=== PATIENT | female | born 1995 | race Caucasian/White ===

== ENCOUNTER 2019-12-03 19:40 | Outpatient (CLI) | payer OTHER ==
[~2019-12-03 19:40] MED LIST: IBUP-1222 PO; OXYC-302 PO
[2019-12-03 19:55] VITALS: BP 119/58
[2019-12-03 20:38] LABS: MICROSCOPIC INDICATED
[2019-12-03 20:46] LABS: BASOPHILS # (AUTO) 0.03 x10^3/uL (0-0.1); BASOPHILS % (AUTO) 1 % (0-1); EOSINOPHILS # (AUTO) 0.25 x10^3/uL (0-0.4); EOSINOPHILS % (AUTO) 4 % (1-7); LYMPHOCYTES # (AUTO) 1.34 x10^3/uL (1-3.4); LYMPHOCYTES % (AUTO) 21 % (22-44); MD NO; MEAN CORPUSCULAR HEMOGLOBIN 31.3 pg (27.0-34.8); MEAN CORPUSCULAR HGB CONC 34.1 g/dL (32.4-35.8); MEAN CORPUSCULAR VOLUME 91.8 fL (80-100); MEAN PLATELET VOLUME 8.5 fL (7.4-10.4); MONOCYTES # (AUTO) 0.73 x10^3/uL (0.2-0.8); MONOCYTES % (AUTO) 11 % (2-9); NEUTROPHILS # (AUTO) 4.16 x10^3/uL (1.8-6.8); NEUTROPHILS % (AUTO) 64 % (42-75); PLATELET COUNT 232 x10^3/uL (130-400); RED BLOOD COUNT 4.03 x10^6/uL (3.82-5.3); RED CELL DISTRIBUTION WIDTH 13.8 % (9.6-15.2)
== END 2019-12-03 21:08 | disposition home or self-care (01) ==
LOC: LDOP 19:40
PROVIDERS: ATTEND Obstetrics & Gynecology
DX: O26.893 Other specified pregnancy related conditions, third trimester (principal); R25.2 Cramp and spasm; Z3A.30 30 weeks gestation of pregnancy; Z88.0 Allergy status to penicillin; Z88.1 Allergy status to other antibiotic agents
CPT/HCPCS: 36415; 59025; 81001; 85025; 87086; 99211; G0463

== ENCOUNTER 2020-02-06 19:49 | Inpatient (IN) | payer OTHER ==
[~2020-02-06] VITALS: Ht 167.6 cm; Wt 72.7 kg
[2020-02-06] MEDS ORDERED: OXYTOCIN 30U/ 0.9% NaCL 500ML 500 ML IV ONE (20:27)
[2020-02-06] MEDS ORDERED: OXYTOCIN 30U/ 0.9% NaCL 500ML 500 ML IV PRN (20:27)
[2020-02-06] MEDS ORDERED: CALCIUM CARBONATE 500 MG TAB.CHEW PO PRN (20:30)
[2020-02-06] MEDS ORDERED: ONDANSETRON 2MG/ML, 2ML IVPush PRN (20:30)
[2020-02-06] MEDS ORDERED: FENTANYL PF 100 MCG/2ML IVPush PRN (20:30)
[2020-02-06] MEDS ORDERED: FENTANYL PF 100 MCG/2ML IV PRN (20:30)
[2020-02-06] MEDS ORDERED: TERBUTALINE 1 MG/ML, 1ML SQ PRN (20:30)
[2020-02-06] MEDS ORDERED: TERBUTALINE 1 MG/ML, 1ML IVPush PRN (20:30)
[2020-02-06] MEDS ORDERED: FENTANYL/BUPIV./NS/PF 250 ML EPIDCONT SCH ×2 (20:32→22:16)
[2020-02-06] MEDS: LACTATED RINGERS 1,000 ML IV SCH (20:45)
[2020-02-06 20:48] LABS: BASOPHILS # (AUTO) 0.05 x10^3/uL (0-0.1); BASOPHILS % (AUTO) 1 % (0-1); EOSINOPHILS # (AUTO) 0.13 x10^3/uL (0-0.4); EOSINOPHILS % (AUTO) 2 % (1-7); LYMPHOCYTES # (AUTO) 1.21 x10^3/uL (1-3.4); LYMPHOCYTES % (AUTO) 14 % (22-44); MD NO; MEAN CORPUSCULAR HEMOGLOBIN 31.3 pg (27.0-34.8); MEAN CORPUSCULAR HGB CONC 33.6 g/dL (32.4-35.8); MEAN CORPUSCULAR VOLUME 93.2 fL (80-100); MEAN PLATELET VOLUME 8.6 fL (7.4-10.4); MONOCYTES # (AUTO) 0.89 x10^3/uL (0.2-0.8); MONOCYTES % (AUTO) 11 % (2-9); NEUTROPHILS # (AUTO) 6.22 x10^3/uL (1.8-6.8); NEUTROPHILS % (AUTO) 73 % (42-75); PLATELET COUNT 188 x10^3/uL (130-400); RED BLOOD COUNT 4.37 x10^6/uL (3.82-5.3); RED CELL DISTRIBUTION WIDTH 14.7 % (9.6-15.2)
[2020-02-06] MEDS ORDERED: NEWBORN KIT ONE (20:50)
[2020-02-06] MEDS ORDERED: LIDOCAINE 1%, 20ML ONE (20:50)
[2020-02-06] MEDS ORDERED: MISOPROSTOL 200 MCG TABLET ONE (20:51)
[2020-02-06] MEDS ORDERED: OXYTOCIN 30U/ 0.9% NaCL 500ML 500 ML ONE (20:51)
[2020-02-06] MEDS ORDERED: EPHEDRINE 50 MG/ML, 1ML IVPush PRN ×2 (21:00→22:30)
[2020-02-06] MEDS ORDERED: FENTANYL PF 500 MCG, BUPIVACAINE/PF 0.5%, 30ML 62.5 ML in SODIUM CHLORIDE 0.9% 177.5 ML EPIDCONT SCH (21:00)
[2020-02-06] MEDS ORDERED: PLEASE ENTER HEIGHT AND WEIGHT MC SCH (21:00)
[2020-02-06] MEDS ORDERED: LACTATED RINGERS 1,000 ML IVBOLUS PRN ×2 (21:00→22:30)
[2020-02-06 21:03] VITALS: BP 112/63
[2020-02-06] MEDS ORDERED: LACTATED RINGERS 1,000 ML IV SCH (22:16)
[2020-02-06] MEDS ORDERED: BUPIVACAINE 0.25% ONE (22:19)
[2020-02-07] MEDS ORDERED: ONDANSETRON 2MG/ML, 2ML ONE (02:55)
[2020-02-07] MEDS: LACTATED RINGERS 1,000 ML IV SCH (04:32)
[2020-02-07] MEDS: OXYTOCIN 30U/ 0.9% NaCL 500ML 500 ML IV SCH ×2 (05:27→15:13)
[2020-02-07] MEDS ORDERED: ONDANSETRON 2MG/ML, 2ML IV PRN (05:30)
[2020-02-07] MEDS ORDERED: SIMETHICONE 80 MG CHEW TAB PO PRN (05:30)
[2020-02-07] MEDS ORDERED: MISOPROSTOL 200 MCG TABLET PR PRN (05:30)
[2020-02-07] MEDS ORDERED: BISACODYL 10 MG SUPP PR PRN (05:30)
[2020-02-07] MEDS ORDERED: OXYcodone/APAP 5/325MG TABLET PO PRN (05:30)
[2020-02-07] MEDS ORDERED: OXYTOCIN 30U/ 0.9% NaCL 500ML 500 ML ONE (06:07)
[2020-02-07 08:02] VITALS: BP 103/65
[2020-02-07] MEDS: PRENATAL VIT/IRON/FA 1 EACH TABLET PO SCH (09:00)
[2020-02-07 13:00] VITALS: BP 112/69
[2020-02-07 13:26] LABS: BASOPHILS # (AUTO) 0.01 x10^3/uL (0-0.1); BASOPHILS % (AUTO) 0 % (0-1); EOSINOPHILS # (AUTO) 0.07 x10^3/uL (0-0.4); EOSINOPHILS % (AUTO) 1 % (1-7); LYMPHOCYTES # (AUTO) 0.84 x10^3/uL (1-3.4); LYMPHOCYTES % (AUTO) 7 % (22-44); MD NO; MEAN CORPUSCULAR HEMOGLOBIN 31.6 pg (27.0-34.8); MEAN CORPUSCULAR HGB CONC 33.9 g/dL (32.4-35.8); MEAN CORPUSCULAR VOLUME 93.3 fL (80-100); MEAN PLATELET VOLUME 8.7 fL (7.4-10.4); MONOCYTES # (AUTO) 0.73 x10^3/uL (0.2-0.8); MONOCYTES % (AUTO) 7 % (2-9); NEUTROPHILS % (AUTO) 85 % (42-75); PLATELET COUNT 181 x10^3/uL (130-400); RED BLOOD COUNT 4.35 x10^6/uL (3.82-5.3); RED CELL DISTRIBUTION WIDTH 14.3 % (9.6-15.2)
[2020-02-07] MEDS: IBUPROFEN 800 MG TABLET PO PRN (13:36)
[2020-02-07] MEDS: OXYcodone/APAP 5/325MG TABLET PO PRN ×2 (14:04→19:30)
[2020-02-07 17:10] VITALS: BP 106/58
[2020-02-07 19:15] VITALS: BP 105/59
[2020-02-07] MEDS: DOCUSATE 100 MG CAPSULE PO PRN (19:28)
[2020-02-08] MEDS: OXYTOCIN 30U/ 0.9% NaCL 500ML 500 ML IV SCH ×2 (01:13→11:13)
[2020-02-08 02:00] VITALS: BP 113/43
[2020-02-08] MEDS: IBUPROFEN 800 MG TABLET PO PRN ×2 (02:08→10:08)
[2020-02-08 08:10] VITALS: BP 104/64
[2020-02-08] MEDS: PRENATAL VIT/IRON/FA 1 EACH TABLET PO SCH (09:00)
[2020-02-08] MEDS: OXYcodone/APAP 5/325MG TABLET PO PRN (10:09)
[2020-02-08] MEDS: DOCUSATE 100 MG CAPSULE PO PRN (10:09)
[2020-02-08] MEDS ORDERED: OXYC-302 PO (11:40)
[2020-02-08] MEDS ORDERED: IBUP-1223 PO (11:40)
[2020-02-08] MEDS ORDERED: DOCU-131 PO (11:40)
== END 2020-02-08 13:05 | disposition home or self-care (01) | DRG 807 ==
LOC: LDOP 19:49 → LDIP 20:26 → 2NW 02-07 07:32
PROVIDERS: ADMIT Obstetrics & Gynecology; ATTEND Obstetrics & Gynecology
PROC: 10E0XZZ Delivery of Products of Conception, External Approach (ICD-10-PCS; principal; 2020-02-07)
PROC: 10907ZC Drainage of Amniotic Fluid, Therapeutic from Products of Conception, Via Natural or Artificial Opening (ICD-10-PCS; 2020-02-07)
PROC: 3E0R3BZ Introduction of Anesthetic Agent into Spinal Canal, Percutaneous Approach (ICD-10-PCS; 2020-02-07)
PROC: 00HU33Z Insertion of Infusion Device into Spinal Canal, Percutaneous Approach (ICD-10-PCS; 2020-02-07)
DX: O76 Abnormality in fetal heart rate and rhythm complicating labor and delivery (principal); Z37.0 Single live birth; O34.219 Maternal care for unspecified type scar from previous cesarean delivery; Z3A.39 39 weeks gestation of pregnancy; Z80.41 Family history of malignant neoplasm of ovary; Z87.891 Personal history of nicotine dependence; Z88.0 Allergy status to penicillin; Z88.1 Allergy status to other antibiotic agents
CPT/HCPCS: 36415; 85025; 86592; 86850; 86900; G0378; J2405; J2590; J7120

== ENCOUNTER 2021-02-02 09:26 | Emergency (ER) | payer OTHER ==
[~2021-02-02] VITALS: Ht 167.6 cm; Wt 55.1 kg
[~2021-02-02 09:26] MED LIST changes: +DOCU-131 PO; +IBUP-1223 PO; -OXYC-302 PO; +OXYC1TAB14 PO
[2021-02-02 09:33] VITALS: BP 115/61
--- NOTE | 2021-02-02 09:49 | NUR ---
PT AMBULATED TO ROOM WITH UPRIGHT STEADY GAIT. MONITORS IN PLACE. PA AT BS
[2021-02-02 10:21] LABS: BASOPHILS % (AUTO) 0 % (0-1); EOSINOPHILS % (AUTO) 6 % (1-7); LYMPHOCYTES % (AUTO) 27 % (22-44); MEAN CORPUSCULAR HGB CONC 33.4 g/dL (32.4-35.8); MONOCYTES % (AUTO) 10 % (2-9); NEUTROPHILS % (AUTO) 57 % (42-75); PLATELET COUNT 239 x10^3/uL (130-400); RED BLOOD COUNT 4.21 x10^6/uL (3.82-5.3)
[2021-02-02 10:23] LABS: MD NO
--- NOTE | 2021-02-02 10:56 | NUR ---
PT TO US
[2021-02-02 10:59] LABS: MICROSCOPIC NOT IND
--- NOTE | 2021-02-02 11:21 | NUR ---
PT BACK FROM US
--- NOTE | 2021-02-02 11:37 | NUR ---
Patient given discharge instructions and they have confirmed that they understand the instructions. Patient ambulatory with steady gait.
== END 2021-02-02 11:38 | disposition home or self-care (01) ==
LOC: ED 10:18
DX: N83.292 Other ovarian cyst, left side (principal); R10.32 Left lower quadrant pain; R11.0 Nausea; R10.2 Pelvic and perineal pain
CPT/HCPCS: 36415; 76830; 81003; 84703; 85025; 99284